=== PATIENT | male | born 1965 | race Caucasian/White ===

== ENCOUNTER 2016-08-31 11:00 | Emergency (ER) | payer OTHER ==
[2016-08-31 11:42] LABS: BASO % 0.6 % (0.2-1.2); EOS # 0.2 10_X3_uL (0.0-0.5); EOS % 2.9 % (0.8-7.0); GRAN # 4.8 10_X3_uL (1.8-5.4); GRAN % 76.8 % (34.0-67.9); HEMATOCRIT 39.6 % (40-51); HEMOGLOBIN 13.1 g/dL (13.7-17.5); LYMPH # 0.6 10_X3_uL (1.3-3.6); LYMPH % 10.2 % (21.8-53.1); MEAN CORPUSCULAR HEMOGLOBIN 26.1 pg (27.0-33.0); MEAN CORPUSCULAR HGB CONC 33.1 g/dL (32.0-36.0); MEAN CORPUSCULAR VOLUME 78.9 fL (79-92); MEAN PLATELET VOLUME 10.5 fl (7.5-11.5); MONO # 0.6 10_X3_uL (0.3-0.8); MONO % 9.5 % (5.3-12.2); PLATELET COUNT 141 x10_3/uL (163-337); RED BLOOD COUNT 5.02 x10_6/uL (4.6-6.1); RED CELL DISTRIBUTION WIDTH 14.7 % (11.6-14.4); WHITE BLOOD COUNT 6.3 x10_3/uL (4.2-9.1)
[2016-08-31 12:00] LABS: ALBUMIN 3.9 gm/dL (3.4-5.0); ALKALINE PHOSPHATASE 89 U/L (50-136); ALT/SGPT 14 U/L (7.53-40.17); AST/SGOT 12 U/L (6.66-35.34); BILIRUBIN,TOTAL 0.36 mg/dL (0.0-1.0); BLOOD UREA NITROGEN 19 mg/dL (7-18); CALCIUM 8.9 mg/dL (8.7-10.7); CARBON DIOXIDE 30 mmol/L (21-32); GLUCOSE,RANDOM 298 mg/dL (70-99); POTASSIUM 4.1 mmol/L (3.5-5.1); SODIUM 139 mmol/L (136-145)
== END 2016-08-31 14:13 | disposition home or self-care (01) ==
LOC: ER 11:00
PROVIDERS: General Practice
DX: R91.8 Other nonspecific abnormal finding of lung field (principal); R60.0 Localized edema; E11.22 Type 2 diabetes mellitus with diabetic chronic kidney disease; E11.65 Type 2 diabetes mellitus with hyperglycemia; I13.0 Hypertensive heart and chronic kidney disease with heart failure and stage 1 through stage 4 chronic kidney disease, or unspecified chronic kidney disease; N18.9 Chronic kidney disease, unspecified; I50.9 Heart failure, unspecified; E66.01 Morbid (severe) obesity due to excess calories; Z79.4 Long term (current) use of insulin; Z79.899 Other long term (current) drug therapy
CPT/HCPCS: 36415; 71250; 80053; 83605; 83880; 85025; 87040; 99283-25; 99284

== ENCOUNTER 2016-09-08 19:00 | Emergency (ER) | payer OTHER | END 2016-09-08 20:46 | disposition home or self-care (01) | LOC: ER 19:00 | DX: J11.1 Influenza due to unidentified influenza virus with other respiratory manifestations (principal); J02.9 Acute pharyngitis, unspecified; R05 Cough; E11.9 Type 2 diabetes mellitus without complications; I10 Essential (primary) hypertension; Z79.899 Other long term (current) drug therapy; Z79.4 Long term (current) use of insulin | CPT/HCPCS: 87400; 99283 ==